=== PATIENT | male | born 1955 | race Caucasian/White ===

== ENCOUNTER 2022-01-06 13:40 | Emergency (ER) | payer MEDICARE ==
[~2022-01-06 13:40] MED LIST: CIPRO500 MG PO; FLAGYL500 MG PO; NORCO 7.5-3251 EACH PO; PERCOCET 10-321 EACH PO; ZOFRAN ODT 4 MG4 MG PO; ZOFRAN4 MG PO
[2022-01-06 14:17] LABS: HEMOGLOBIN 14.9 gm/dl (14.0-17.5); RED BLOOD COUNT 5.32 M/UL (4.20-5.50); WHITE BLOOD COUNT 5.1 K/UL (4.5-11.0)
[2022-01-06 14:44] LABS: BUN/CREATININE RATIO 10 (0-10)
[2022-01-06] MEDS ORDERED: [UNRECOGNIZED DRUG - OTHER] (16:51)
== END 2022-01-06 17:35 | disposition home or self-care (01) ==
LOC: ER1 13:40
PROVIDERS: Physician Assistant
DX: R07.9 Chest pain, unspecified (principal); E87.6 Hypokalemia; R06.02 Shortness of breath; R42 Dizziness and giddiness; Z88.5 Allergy status to narcotic agent
CPT/HCPCS: 70450; 71045; 80053; 82550; 82553; 84439; 84443; 84484; 85025; 93005; 99285